=== PATIENT | female | born 1950 | race Caucasian/White ===

== ENCOUNTER 2016-04-14 07:05 | Outpatient (CLI) | payer BC | END 2016-04-14 07:06 | disposition home or self-care (01) | DX: E03.9 Hypothyroidism, unspecified (principal) ==

== ENCOUNTER 2016-06-03 07:37 | Outpatient (CLI) | payer BC, MEDICARE, OTHER | END 2016-06-03 07:38 | disposition home or self-care (01) | DX: E03.8 Other specified hypothyroidism (principal); M83.9 Adult osteomalacia, unspecified; D50.9 Iron deficiency anemia, unspecified; N95.1 Menopausal and female climacteric states ==

== ENCOUNTER 2016-09-24 08:42 | Outpatient (CLI) | payer MEDICARE, OTHER ==
[2016-09-24 20:10] LABS: FREE T3 3.09 pg/mL (2.5-3.9)
[2016-09-24 20:18] LABS: FERRITIN 15.8 ng/mL (11.0-306.8)
[2016-09-24 20:30] LABS: THYROID STIMULATING HORMONE 3.79 uIU/mL (0.34-5.60)
== END 2016-09-24 08:43 | disposition home or self-care (01) ==
LOC: LAB.F 08:42
PROVIDERS: ATTEND Internal Medicine Endocrinology, Diabetes & Metabolism
DX: E03.8 Other specified hypothyroidism (principal); N95.1 Menopausal and female climacteric states
CPT/HCPCS: 36415; 82306; 82670; 82728; 84144; 84403; 84439; 84443; 84481

== ENCOUNTER 2017-03-28 08:26 | Outpatient (CLI) | payer MEDICARE, OTHER ==
[2017-03-28 18:44] LABS: FREE T3 3.07 pg/mL (2.5-3.9)
[2017-03-28 18:45] LABS: THYROID STIMULATING HORMONE 1.24 uIU/mL (0.34-5.60)
[2017-03-28 18:47] LABS: FREE T4 (FREE THYROXINE) 0.66 ng/dL (0.58-1.64)
== END 2017-03-28 08:27 | disposition home or self-care (01) ==
LOC: LAB.F 08:26
PROVIDERS: ATTEND Internal Medicine Endocrinology, Diabetes & Metabolism
DX: E03.8 Other specified hypothyroidism (principal); E55.9 Vitamin D deficiency, unspecified
CPT/HCPCS: 36415; 82306; 82533; 82728; 84144; 84403; 84439; 84443; 84481

== ENCOUNTER 2020-01-04 11:41 | Outpatient (CLI) | payer MEDICARE, OTHER ==
[2020-01-04 16:07] LABS: THYROID STIMULATING HORMONE 1.66 uIU/mL (0.34-5.60)
[2020-01-04 16:08] LABS: FREE T3 4.87 pg/mL (2.5-3.9)
[2020-01-04 16:09] LABS: FREE T4 (FREE THYROXINE) 0.77 ng/dL (0.58-1.64)
[2020-01-04 16:13] LABS: FERRITIN 51.6 ng/mL (11.0-306.8)
== END 2020-01-04 11:42 | disposition home or self-care (01) ==
LOC: LAB.S 11:41
PROVIDERS: ATTEND Internal Medicine Endocrinology, Diabetes & Metabolism
DX: E03.8 Other specified hypothyroidism (principal); E55.9 Vitamin D deficiency, unspecified
CPT/HCPCS: 36415; 82306; 82728; 84439; 84443; 84481

== ENCOUNTER 2021-02-16 09:38 | Outpatient (CLI) | payer MEDICARE, OTHER ==
[2021-02-16 15:38] LABS: THYROID STIMULATING HORMONE 1.58 uIU/mL (0.34-5.60)
[2021-02-16 15:39] LABS: FREE T3 4.43 pg/mL (2.5-3.9)
[2021-02-16 15:40] LABS: FREE T4 (FREE THYROXINE) 0.75 ng/dL (0.58-1.64)
[2021-02-16 15:44] LABS: FERRITIN 56.4 ng/mL (11.0-306.8)
== END 2021-02-16 09:39 | disposition home or self-care (01) ==
LOC: LAB.S 09:38
PROVIDERS: ATTEND Internal Medicine Endocrinology, Diabetes & Metabolism
DX: E03.8 Other specified hypothyroidism (principal); E55.9 Vitamin D deficiency, unspecified
CPT/HCPCS: 36415; 82306; 82728; 84439; 84443; 84481

== ENCOUNTER 2021-08-21 09:54 | Outpatient (CLI) | payer MEDICARE, OTHER ==
[2021-08-21 16:39] LABS: FREE T3 4.88 pg/mL (2.5-3.9); THYROID STIMULATING HORMONE 0.62 uIU/mL (0.34-5.60)
[2021-08-21 16:40] LABS: FREE T4 (FREE THYROXINE) 0.82 ng/dL (0.58-1.64)
[2021-08-21 16:45] LABS: FERRITIN 36.9 ng/mL (11.0-306.8)
== END 2021-08-21 09:55 | disposition home or self-care (01) ==
LOC: LAB.S 09:54
PROVIDERS: ATTEND Internal Medicine Endocrinology, Diabetes & Metabolism
DX: E03.8 Other specified hypothyroidism (principal)
CPT/HCPCS: 36415; 82306; 82728; 84439; 84443; 84481

== ENCOUNTER 2021-11-17 13:32 | Outpatient (CLI) | payer MEDICARE, OTHER ==
[2021-11-17 20:15] LABS: THYROID STIMULATING HORMONE 0.41 uIU/mL (0.34-5.60)
[2021-11-17 20:16] LABS: FREE T3 4.41 pg/mL (2.5-3.9)
[2021-11-17 20:17] LABS: FREE T4 (FREE THYROXINE) 0.96 ng/dL (0.58-1.64)
== END 2021-11-17 13:33 | disposition home or self-care (01) ==
LOC: LAB.S 13:32
PROVIDERS: ATTEND Internal Medicine Endocrinology, Diabetes & Metabolism
DX: E03.8 Other specified hypothyroidism (principal)
CPT/HCPCS: 36415; 84439; 84443; 84481

== ENCOUNTER 2022-02-08 10:01 | Outpatient (CLI) | payer MEDICARE, OTHER ==
[2022-02-08 15:38] LABS: THYROID STIMULATING HORMONE 0.34 uIU/mL (0.34-5.60)
[2022-02-08 15:40] LABS: FREE T4 (FREE THYROXINE) 0.79 ng/dL (0.58-1.64)
== END 2022-02-08 10:02 | disposition home or self-care (01) ==
LOC: LAB.S 10:01
PROVIDERS: ATTEND Internal Medicine Endocrinology, Diabetes & Metabolism
DX: E03.8 Other specified hypothyroidism (principal)
CPT/HCPCS: 36415; 84439; 84443; 84481

== ENCOUNTER 2023-01-07 12:34 | Outpatient (CLI) | payer MEDICARE, OTHER ==
--- NOTE | 2023-01-07 16:38 | DEXA Report ---
PROCEDURE: Dexa Spine and/or Hip INDICATIONS: OSTEOPENIA TECHNIQUE: Dual energy x-ray absorptiometry (DXA) was performed on a [employer] System. Regions measur ed are the AP Spine, femoral neck, and if needed forearm. COMPARISON: DEXA 05/21/2020. FINDINGS: Lumbar Spine: Bone Mineral Density 1.284 g/cm/cm, T score 0.9. Since the most recent prior study, there has been a statistically significant increase in bone mineral density by 3.6 percent. Left Femoral Neck: Bone Mineral Density 0.776 g/cm/cm, T score -1.9. Left Hip: Bone Mineral Density 0.744 g/cm/cm, T score -2.1. Since the most recent prior study, there has been a statistically significant decrease in bone mineral density by -5.3 percent. (T score greater or equal to -1.0: NORMAL) (T score from -1.1 to -2.4: OSTEOPENIA) (T score less than or equal to -2.5 to: OSTEOPOROSIS) Impression: By WHO criteria, this patient has low bone density (osteopenia). Interval statistical increase in bone mineral density of the lumbar spine. Interval statistical decrease in bone mineral density of the hip. Patients with diagnosis of osteoporosis or osteopenia should have regular bone mineral density assess ment. For those eligible for Medicare, routine testing is allowed once every 2 years. Testing frequ ency can be increased for patients who have rapidly progressing disease or for those who are receivin g medical therapy to restore bone mass. Reviewed by: Chi Rivera MD on 01/07/2023 4:37 PM PDT Approved by: Chi Rivera MD on 01/07/2023 4:37 PM PDT Station ID: [id number]
== END 2023-01-07 12:35 | disposition home or self-care (01) ==
LOC: DI 12:34
PROVIDERS: ATTEND Registered Nurse
DX: M85.80 Other specified disorders of bone density and structure, unspecified site (principal)